=== PATIENT | female | born 1950 | race Caucasian/White ===

== ENCOUNTER 2018-03-02 15:25 | Emergency (ER) | payer MEDICARE, OTHER, SELFPAY ==
[2018-03-02 15:39] VITALS: BP 178/75; PULSE 102; RESP 19; TEMP 36.2; O2SAT 97; BMI 31.2
--- NOTE | 2018-03-02 15:53 | ED.BACK ---
HPI - Back Pain/Injury General Chief Complaint: Back Pain/Injury Stated Complaint: Back/neck pain Time Seen by Provider: 03/02/18 15:37 Source: patient Mode of arrival: ambulatory Limitations: no limitations History of Present Illness HPI Narrative: This is a 68-year-old female who comes to the emergency department with complaint of back pain. She states started with upper neck pain which has slowly been increasing, she then started having lower back pain. She states that has become more significant. Particularly with movement on the right side of her lower extremity. Patient states that she sort of protect that side. Patient has not had the fall, she does recall any trauma or other injuries. She does have a history significant for a matter of myositis and was concerned that she may be having recurrence. She states at that time it was more in her shoulders and thighs and hips. Patient states that she has not any fevers. She sometimes gets dry but has not had any cold cough or congestion. No chest pain, no shortness of breath, no nausea no vomiting no other GI or urinary symptoms. No loss of bowel or bladder control. No weakness, numbness or tingling in her extremities. 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 Related Data Previous Rx's Medication Instructions Recorded lorazepam [Ativan] 1 mg PO TID PRN #10 tab 03/02/18 prednisone 40 mg PO DAILY 3 Days #6 tab 03/02/18 Review of Systems Review of Systems ROS Unobtainable: All systems reviewed & are unremarkable except as noted in HPI and below Constitutional Denies chills, Denies fever(s), Denies lethargy and Denies weakness ENT Ears, Nose, Mouth, and Throat: Reports neck pain Cardiovascular Denies chest pain, Denies palpitations, Denies dyspnea and Denies dyspnea on exertion Respiratory Denies chest congestion, Denies cough, Denies dyspnea, Denies dyspnea on exertion and Denies wheezing Gastrointestinal Gastrointestinal: Denies abdominal pain, Denies change in bowel habits, Denies fecal incontinence, Denies diarrhea, Denies nausea and Denies vomiting Genitourinary Denies dysuria, Denies urinary incontinence and Denies urinary urgency Musculoskeletal Reports abnormal gait, Reports back pain, Reports myalgias, Denies deformity, Denies arthralgias, Denies limited range of motion, Denies muscle weakness, Reports neck pain, Denies numbness, Denies stiffness and Denies tingling Neurologic Reports abnormal gait, Denies numbness, Denies tingling and Denies weakness Endocrine Denies palpitations Allergic/Immunologic Denies wheezing PFSH Medical History Dermatomyositis (Acute) Takotsubo cardiomyopathy (Acute) Social History Smoking Status: Never smoker Exam Narrative Exam Narrative: GENERAL: Alert and oriented x three, moderately obese female in moderate distress. HEENT: Head normocephalic, atraumatic, EOMI, pupils reactive, face symmetric, moist mucous membranes NECK: Supple, full range of motion CARDIOVASCULAR: Regular rate and rhythm without murmurs, rubs or gallops. RESPIRATORY: Breath sounds equal bilaterally, no wheezes rales or rhonchi. ABDOMEN: Soft, nontender. Normoactive bowel sounds all 4 quadrants. No guarding or rebound, rigidity, no mass : No CVA tenderness BACK: No cervical, thoracic or lumbar vertebral point tenderness. Patient has generalized muscular tenderness on exam. Patient has normal range of motion, but is quite uncomfortable getting out of the bed and walking. Muscle strength is 5/5 in lower extremities, DTRs are 2/4 and lower extremities. Sensation is intact in the lower extremities. EXTREMITIES: Normal range of motion, no clubbing or edema. Neurovascularly intact. NEUROLOGICAL: Cranial nerves II through XII grossly intact. Moving all extremities SKIN: Warm, dry, no petechiae, no rashes or lesions. Initial Vital Signs Initial Vital Signs: Vital Signs Temperature 97.2 F L 03/02/18 15:39 Pulse Rate 102 H 03/02/18 15:39 Respiratory Rate 19 03/02/18 15:39 Blood Pressure 178/75 H 03/02/18 15:39 Pulse Oximetry 97 03/02/18 15:39 Course Orders Ordered: ED Orders 03/02/18 15:55 XR lumbar spine 2-3V Stat 03/02/18 16:25 Complete Blood Count AUTO DIFF Stat Comprehensive Metabolic Panel Stat Creatine Kinase Stat Lipase Stat Discontinued Medications Sodium Chloride (Normal Saline 0.9%) 1,000 mls @ 1,000 mls/hr IV BOLUS ONE Stop: 03/02/18 16:53 Last Infusion: 03/02/18 17:51 Dose: 0 mls/hr Admin: 03/02/18 16:30 Dose: 1,000 mls/hr Ketorolac Tromethamine (Toradol) 15 mg IV NOW ONE Stop: 03/02/18 15:59 Last Admin: 03/02/18 16:29 Dose: 15 mg Lorazepam (Ativan) 1 mg PO NOW ONE Stop: 03/02/18 17:18 Last Admin: 03/02/18 17:45 Dose: 1 mg Methylprednisolone (Solu-Medrol 125 Mg Vial) 125 mg IV NOW ONE Stop: 03/02/18 16:29 Last Admin: 03/02/18 16:31 Dose: 125 mg Vital Signs - 8 hr 03/02/18 15:39 03/02/18 17:23 03/02/18 17:52 Temperature 97.2 F L Pulse Rate 102 H 83 83 Respiratory Rate 19 15 16 Blood Pressure 178/75 H Blood Pressure [Right Arm] 139/60 125/53 L Pulse Oximetry 97 95 96 MDM - Back Pain/Injury Lab Data Attestation: I reviewed the patient's lab results. Result diagrams: 03/02/18 16:25 03/02/18 16:25 Lab Results 03/02/18 03/02/18 Range/Units 16:25 16:25 WBC 10.1 (4.5-11.0) X10^3/uL RBC 4.48 (4.0-5.2) X10^6/uL Hgb 14.1 (12.0-16.0) g/dL Hct 41.2 (36-46) % MCV 92.1 (80-100) fL MCH 31.4 (26-34) PG MCHC 34.1 (30-36) % RDW 12.8 (11.6-14.8) % Plt Count 304 (150-400) X10^3/uL Neut % (Auto) 76.5 H (50-75) % Lymph % (Auto) 13.2 L (25-40) % [place] % (Auto) 8.0 (3-14) % Eos % (Auto) 1.7 L (2-4) % Baso % (Auto) 0.6 (0-2) % Neut # (Auto) 7800 H (9514-9410) /uL Lymph # (Auto) 1300 (4463-1499) /uL [place] # (Auto) 800 (0-900) /uL Eos # (Auto) 200 (0-450) /uL Baso # (Auto) 100 (0-100) /uL Sodium 138 (137-145) mmol/L Potassium 4.0 (3.4-5.1) mmol/L Chloride 98 (98-107) mmol/L Carbon Dioxide 26 (22-32) mmol/L BUN 19 H (7-17) mg/dL Creatinine 0.70 (0.52-1.04) mg/dL Estimated GFR > 60.0 (>60) mL/min BUN/Creatinine Ratio 27.1 H (6-22) Glucose 112 H (80-110) mg/dL Calcium 9.7 (8.4-10.2) mg/dL Total Bilirubin 0.4 (0.2-1.3) mg/dL AST 30 (14-36) IU/L ALT 38 (9-52) IU/L Alkaline Phosphatase 76 (38-126) U/L Total Creatine Kinase 43 (30-135) U/L Total Protein 7.8 (6.3-8.2) g/dL Albumin 4.5 (3.5-5.0) g/dL Globulin 3.3 (1.7-4.1) g/dL Albumin/Globulin Ratio 1.4 (1.0-2.8) Lipase 115 (23-300) U/L Urine Dip Bedside Urine Glucose Negative Bedside Urine Bilirubin - Negative Bedside Urine Ketone - Negative Urine Specific [place] 1.015 Bedside Urine Occult Blood - Negative Bedside Urine pH 7.0 Bedside Urine Protein - Negative Bedside Urine Urobilinogen - Negative Bedside Urine Nitrite - Negative Bedside Urine Leukocytes - Negative Esterase Imaging Data lspine xray: Radiologist's impression: [address] [address] XRay Report Signed Patient: Mikala Mondragon MR#: [id number] : 1950 Acct:[id number] Age/Sex: 68 / F Date of Service: 03/02/18 Loc: ED Accession Number: [id number] Procedure: XR lumbar spine 2-3V Ordering Provider: Nano Easley D.O. PROCEDURE: XR LUMBAR SPINE 2-3V INDICATIONS: back pain, upper and lower no know injury TECHNIQUE: 3 views of the lumbar spine were acquired. COMPARISON: None. FINDINGS: Bones: 5 [id number] vertebrae are present. There is normal bony alignment. Moderate degenerative disc disease and bilateral facet arthrosis throughout lumbar spine is seen most prominent at L4-5 and L5-S1 levels. No vertebral body compression fractures. No suspicious bony lesions. Soft tissues: Overlying bowel gas pattern is normal. No suspicious soft tissue calcifications. IMPRESSION: Degenerative disc disease throughout lumbar spine. No acute compression fracture or traumatic spondylolisthesis. Dictated by: Raudel Vick M.D. on 03/02/2018 at 16:09 Approved by: Raudel Vick M.D. on 03/02/2018 at 16:11 [facility] Narrative Medical decision making narrative: Recheck after medications, patient has a little bit of improvement but is still uncomfortable. She drove herself so does not want to take any additional medications that would make her sleepy at this time. We discussed sending an Ativan home with her to take at home for her to continue her home medications. Do a short burst dose of steroids as well as increase her meloxicam to twice daily. She has 7.5 mg walks a CAM with her. Discussed she can do this for the next 2-3 days. She is going to call her physician tomorrow morning she was supposed to call back to follow-up. We discussed also doing further evaluation for other causes or autoimmune causes of her discomfort. Discharge Plan Departure Patient Disposition: Home Clinical Impression: Back pain Discharge Date/Time: 03/02/18 17:51 Interventions: ED Discharge Assessment Last Done: 03/02/18 17:51 Instructions: DI for Low Back Pain Activity Restrictions/Additional Instructions: Follow up with your primary care physician in the next 2-3 days for recheck. Call for an appointment. Take medications as prescribed, this medication can make you sleepy do not drive, perform hazards activities or make any major decisions taking it. Do not increase your gabapentin and take ativan at the same time. Take steroids until they are completed. You may increase mobic to 1 tablet every 12 hours for several days. Return to the emergency department for new bowel or bladder incontinence, new weakness, numbness extremity, rapidly worsening back pain, fevers or other new or concerning symptoms. Prescriptions: New lorazepam [Ativan] 1 mg tablet 1 mg PO TID PRN (Reason: muscle spasm) Qty: 10 RF: 0 prednisone 20 mg tablet 40 mg PO DAILY 3 Days Qty: 6 RF: 0
--- NOTE | 2018-03-02 16:03 | ED_ITS ---
HPI - Back Pain/Injury General Chief Complaint: Back Pain/Injury Stated Complaint: Back/neck pain Time Seen by Provider: 03/02/18 15:37 Source: patient Mode of arrival: ambulatory Limitations: no limitations History of Present Illness HPI Narrative: This is a 68-year-old female who comes to the emergency department with complaint of back pain. She states started with upper neck pain which has slowly been increasing, she then started having lower back pain. She states that has become more significant. Particularly with movement on the right side of her lower extremity. Patient states that she sort of protect that side. Patient has not had the fall, she does recall any trauma or other injuries. She does have a history significant for a matter of myositis and was concerned that she may be having recurrence. She states at that time it was more in her shoulders and thighs and hips. Patient states that she has not any fevers. She sometimes gets dry but has not had any cold cough or congestion. No chest pain, no shortness of breath, no nausea no vomiting no other GI or urinary symptoms. No loss of bowel or bladder control. No weakness, numbness or tingling in her extremities. 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 Related Data Previous Rx's Medication Instructions Recorded lorazepam [Ativan] 1 mg PO TID PRN #10 tab 03/02/18 prednisone 40 mg PO DAILY 3 Days #6 tab 03/02/18 Review of Systems Review of Systems ROS Unobtainable: All systems reviewed & are unremarkable except as noted in HPI and below Constitutional Denies chills, Denies fever(s), Denies lethargy and Denies weakness ENT Ears, Nose, Mouth, and Throat: Reports neck pain Cardiovascular Denies chest pain, Denies palpitations, Denies dyspnea and Denies dyspnea on exertion Respiratory Denies chest congestion, Denies cough, Denies dyspnea, Denies dyspnea on exertion and Denies wheezing Gastrointestinal Gastrointestinal: Denies abdominal pain, Denies change in bowel habits, Denies fecal incontinence, Denies diarrhea, Denies nausea and Denies vomiting Genitourinary Denies dysuria, Denies urinary incontinence and Denies urinary urgency Musculoskeletal Reports abnormal gait, Reports back pain, Reports myalgias, Denies deformity, Denies arthralgias, Denies limited range of motion, Denies muscle weakness, Reports neck pain, Denies numbness, Denies stiffness and Denies tingling Neurologic Reports abnormal gait, Denies numbness, Denies tingling and Denies weakness Endocrine Denies palpitations Allergic/Immunologic Denies wheezing PFSH Medical History Dermatomyositis (Acute) Takotsubo cardiomyopathy (Acute) Social History Smoking Status: Never smoker Exam Narrative Exam Narrative: GENERAL: Alert and oriented x three, moderately obese female in moderate distress. HEENT: Head normocephalic, atraumatic, EOMI, pupils reactive, face symmetric, moist mucous membranes NECK: Supple, full range of motion CARDIOVASCULAR: Regular rate and rhythm without murmurs, rubs or gallops. RESPIRATORY: Breath sounds equal bilaterally, no wheezes rales or rhonchi. ABDOMEN: Soft, nontender. Normoactive bowel sounds all 4 quadrants. No guarding or rebound, rigidity, no mass : No CVA tenderness BACK: No cervical, thoracic or lumbar vertebral point tenderness. Patient has generalized muscular tenderness on exam. Patient has normal range of motion, but is quite uncomfortable getting out of the bed and walking. Muscle strength is 5/5 in lower extremities, DTRs are 2/4 and lower extremities. Sensation is intact in the lower extremities. EXTREMITIES: Normal range of motion, no clubbing or edema. Neurovascularly intact. NEUROLOGICAL: Cranial nerves II through XII grossly intact. Moving all extremities SKIN: Warm, dry, no petechiae, no rashes or lesions. Initial Vital Signs Initial Vital Signs: Vital Signs Temperature 97.2 F L 03/02/18 15:39 Pulse Rate 102 H 03/02/18 15:39 Respiratory Rate 19 03/02/18 15:39 Blood Pressure 178/75 H 03/02/18 15:39 Pulse Oximetry 97 03/02/18 15:39 Course Orders Ordered: ED Orders 03/02/18 15:55 XR lumbar spine 2-3V Stat 03/02/18 16:25 Complete Blood Count AUTO DIFF Stat Comprehensive Metabolic Panel Stat Creatine Kinase Stat Lipase Stat Discontinued Medications Sodium Chloride (Normal Saline 0.9%) 1,000 mls @ 1,000 mls/hr IV BOLUS ONE Stop: 03/02/18 16:53 Last Infusion: 03/02/18 17:51 Dose: 0 mls/hr Admin: 03/02/18 16:30 Dose: 1,000 mls/hr Ketorolac Tromethamine (Toradol) 15 mg IV NOW ONE Stop: 03/02/18 15:59 Last Admin: 03/02/18 16:29 Dose: 15 mg Lorazepam (Ativan) 1 mg PO NOW ONE Stop: 03/02/18 17:18 Last Admin: 03/02/18 17:45 Dose: 1 mg Methylprednisolone (Solu-Medrol 125 Mg Vial) 125 mg IV NOW ONE Stop: 03/02/18 16:29 Last Admin: 03/02/18 16:31 Dose: 125 mg Vital Signs - 8 hr 03/02/18 15:39 03/02/18 17:23 03/02/18 17:52 Temperature 97.2 F L Pulse Rate 102 H 83 83 Respiratory Rate 19 15 16 Blood Pressure 178/75 H Blood Pressure [Right Arm] 139/60 125/53 L Pulse Oximetry 97 95 96 MDM - Back Pain/Injury Lab Data Attestation: I reviewed the patient's lab results. Result diagrams: 03/02/18 16:25 03/02/18 16:25 Lab Results 03/02/18 03/02/18 Range/Units 16:25 16:25 WBC 10.1 (4.5-11.0) X10^3/uL RBC 4.48 (4.0-5.2) X10^6/uL Hgb 14.1 (12.0-16.0) g/dL Hct 41.2 (36-46) % MCV 92.1 (80-100) fL MCH 31.4 (26-34) PG MCHC 34.1 (30-36) % RDW 12.8 (11.6-14.8) % Plt Count 304 (150-400) X10^3/uL Neut % (Auto) 76.5 H (50-75) % Lymph % (Auto) 13.2 L (25-40) % [place] % (Auto) 8.0 (3-14) % Eos % (Auto) 1.7 L (2-4) % Baso % (Auto) 0.6 (0-2) % Neut # (Auto) 7800 H (5427-9817) /uL Lymph # (Auto) 1300 (0052-4606) /uL [place] # (Auto) 800 (0-900) /uL Eos # (Auto) 200 (0-450) /uL Baso # (Auto) 100 (0-100) /uL Sodium 138 (137-145) mmol/L Potassium 4.0 (3.4-5.1) mmol/L Chloride 98 (98-107) mmol/L Carbon Dioxide 26 (22-32) mmol/L BUN 19 H (7-17) mg/dL Creatinine 0.70 (0.52-1.04) mg/dL Estimated GFR > 60.0 (>60) mL/min BUN/Creatinine Ratio 27.1 H (6-22) Glucose 112 H (80-110) mg/dL Calcium 9.7 (8.4-10.2) mg/dL Total Bilirubin 0.4 (0.2-1.3) mg/dL AST 30 (14-36) IU/L ALT 38 (9-52) IU/L Alkaline Phosphatase 76 (38-126) U/L Total Creatine Kinase 43 (30-135) U/L Total Protein 7.8 (6.3-8.2) g/dL Albumin 4.5 (3.5-5.0) g/dL Globulin 3.3 (1.7-4.1) g/dL Albumin/Globulin Ratio 1.4 (1.0-2.8) Lipase 115 (23-300) U/L Urine Dip Bedside Urine Glucose Negative Bedside Urine Bilirubin - Negative Bedside Urine Ketone - Negative Urine Specific [place] 1.015 Bedside Urine Occult Blood - Negative Bedside Urine pH 7.0 Bedside Urine Protein - Negative Bedside Urine Urobilinogen - Negative Bedside Urine Nitrite - Negative Bedside Urine Leukocytes - Negative Esterase Imaging Data lspine xray: Radiologist's impression: [address] [address] XRay Report Signed Patient: iMkala Mondragon MR#: [id number] : 1950 Acct:[id number] Age/Sex: 68 / F Date of Service: 03/02/18 Loc: ED Accession Number: [id number] Procedure: XR lumbar spine 2-3V Ordering Provider: Nano Easley D.O. PROCEDURE: XR LUMBAR SPINE 2-3V INDICATIONS: back pain, upper and lower no know injury TECHNIQUE: 3 views of the lumbar spine were acquired. COMPARISON: None. FINDINGS: Bones: 5 [id number] vertebrae are present. There is normal bony alignment. Moderate degenerative disc disease and bilateral facet arthrosis throughout lumbar spine is seen most prominent at L4-5 and L5-S1 levels. No vertebral body compression fractures. No suspicious bony lesions. Soft tissues: Overlying bowel gas pattern is normal. No suspicious soft tissue calcifications. IMPRESSION: Degenerative disc disease throughout lumbar spine. No acute compression fracture or traumatic spondylolisthesis. Dictated by: Raudel Vick M.D. on 03/02/2018 at 16:09 Approved by: Raudel Vick M.D. on 03/02/2018 at 16:11 [facility] Narrative Medical decision making narrative: Recheck after medications, patient has a little bit of improvement but is still uncomfortable. She drove herself so does not want to take any additional medications that would make her sleepy at this time. We discussed sending an Ativan home with her to take at home for her to continue her home medications. Do a short burst dose of steroids as well as increase her meloxicam to twice daily. She has 7.5 mg walks a CAM with her. Discussed she can do this for the next 2-3 days. She is going to call her physician tomorrow morning she was supposed to call back to follow-up. We discussed also doing further evaluation for other causes or autoimmune causes of her discomfort. Discharge Plan Departure Patient Disposition: Home Clinical Impression: Back pain Discharge Date/Time: 03/02/18 17:51 Interventions: ED Discharge Assessment Last Done: 03/02/18 17:51 Instructions: DI for Low Back Pain Activity Restrictions/Additional Instructions: Follow up with your primary care physician in the next 2-3 days for recheck. Call for an appointment. Take medications as prescribed, this medication can make you sleepy do not drive , perform hazards activities or make any major decisions taking it. Do not increase your gabapentin and take ativan at the same time. Take steroids until they are completed. You may increase mobic to 1 tablet every 12 hours for several days. Return to the emergency department for new bowel or bladder incontinence, new weakness, numbness extremity, rapidly worsening back pain, fevers or other new or concerning symptoms. Prescriptions: New lorazepam [Ativan] 1 mg tablet 1 mg PO TID PRN (Reason: muscle spasm) Qty: 10 RF: 0 prednisone 20 mg tablet 40 mg PO DAILY 3 Days Qty: 6 RF: 0
[2018-03-02] MEDS: KETOROLAC 60 MG/2 ML VIAL 15 MG IV (16:29)
[2018-03-02] MEDS: SODIUM CHLORIDE 0.9% 1,000 ML 1000 ML IV (16:30)
[2018-03-02] MEDS: methylPREDNISolone 125 MG/2 ML VIAL IV (16:31)
[2018-03-02 16:34] LABS: Add Manual Diff / Slide Review NO; Basophils Absolute Auto 100 /uL (0-100); Basophils Percent Auto 0.6 % (0-2); Eosinophils Absolute Auto 200 /uL (0-450); Eosinophils Percent Auto 1.7 % (2-4); Hematocrit 41.2 % (36-46); Hemoglobin 14.1 g/dL (12.0-16.0); Lymphocytes Absolute Auto 1300 /uL (1100-4500); Lymphocytes Percent Auto 13.2 % (25-40); Mean Corpuscular HGB Conc 34.1 % (30-36); Mean Corpuscular Hemoglobin 31.4 PG (26-34); Mean Corpuscular Volume 92.1 fL (80-100); Monocytes Absolute Auto 800 /uL (0-900); Neutrophils Absolute Auto 7800 /uL (1500-7000); Neutrophils Percent Auto 76.5 % (50-75); Platelet Count 304 X10^3/uL (150-400); Red Blood Cell Count 4.48 X10^6/uL (4.0-5.2); Red Cell Distribution Width 12.8 % (11.6-14.8); White Blood Cell Count 10.1 X10^3/uL (4.5-11.0)
[2018-03-02 16:46] LABS: Alanine Aminotransferase 38 IU/L (9-52); Albumin 4.5 g/dL (3.5-5.0); Albumin Globulin Ratio 1.4 (1.0-2.8); Alkaline Phosphatase 76 U/L (38-126); Aspartate Aminotransferase 30 IU/L (14-36); BUN Creatinine Ratio 27.1 (6-22); Bilirubin Total 0.4 mg/dL (0.2-1.3); Blood Urea Nitrogen 19 mg/dL (7-17); Calcium 9.7 mg/dL (8.4-10.2); Carbon Dioxide 26 mmol/L (22-32); Chloride 98 mmol/L (98-107); Creatine Kinase 43 U/L (30-135); Estimated Glomerular Filt Rate > 60.0 mL/min (>60); Globulin 3.3 g/dL (1.7-4.1); Glucose 112 mg/dL (80-110); HEMOLYSIS 34 (0-50); Lipase 115 U/L (23-300); Sodium 138 mmol/L (137-145); Total Protein 7.8 g/dL (6.3-8.2)
[2018-03-02 17:23] VITALS: BP 139/60; PULSE 83; RESP 15; O2SAT 95
[2018-03-02] MEDS: LORazepam 0.5 MG TABLET 1 MG PO (17:45)
[2018-03-02 17:52] VITALS: BP 125/53; PULSE 83; RESP 16; O2SAT 96
== END 2018-03-02 17:51 | disposition home or self-care (01) ==
PROVIDERS: Emergency Provider Emergency Medicine
DX: M54.9 Dorsalgia, unspecified (principal)
CPT/HCPCS: 36591; 72100; 80053; 81003; 82550; 83690; 85025; 96361; 96374; 96375; 99283; 99285; J1885; J2930